=== PATIENT | female | born 1965 | race Caucasian/White ===

== ENCOUNTER 2023-08-18 16:33 | Emergency (ER) | payer BC ==
[~2023-08-18] VITALS: Ht 152.4 cm; Wt 63.5 kg
[2023-08-18 16:46] VITALS: BP_SYST 127; PULSE 72; RESP 18; TEMP 98.5; O2SAT 98
[2023-08-18] MEDS ORDERED: LIDO5CRE18 TP (19:57)
[2023-08-18] MEDS ORDERED: DICL20GE TP (19:57)
[2023-08-18] MEDS ORDERED: IBUP-1969 PO (19:57)
[2023-08-18] MEDS: LIDOCAINE PATCH 5% 1 EA TP ONE (19:58)
[2023-08-18] MEDS: IBUPROFEN 600 MG TABLET PO ONE (19:58)
[2023-08-18 20:03] VITALS: BP_SYST 127; PULSE 72; RESP 18; TEMP 98.5; O2SAT 98
[2023-08-18] MEDS: KETOROLAC TROMETHAMINE 30 MG VIAL IM ONE ×2 (20:03)
== END 2023-08-18 20:01 | disposition home or self-care (01) ==
LOC: SED 16:33
DX: S40.011A Contusion of right shoulder, initial encounter (principal); W18.39XA Other fall on same level, initial encounter; Y93.89 Activity, other specified; Y92.89 Other specified places as the place of occurrence of the external cause; Y99.8 Other external cause status
CPT/HCPCS: 73030; 99283; J1885